=== PATIENT | female | born 1940 | race African-American/Black ===

== ENCOUNTER 2020-08-30 19:41 | Inpatient (IN) | payer MEDICARE ==
[~2020-08-30] VITALS: Ht 165.1 cm; Wt 65.8 kg
[2020-08-30] MEDS ORDERED: SODIUM CHLORIDE 0.9% 1,000 ML IV ONE (20:45)
[2020-08-30 21:40] LABS: HEMATOCRIT. 23.2 % (36.0-48.0); HEMOGLOBIN. 8.1 g/dL (12.0-16.0); MEAN CORPUSCULAR VOLUME 74.7 fL (81.0-99.0); MEAN PLATELET VOLUME 8.4 fl (7.4-10.4); PLATELET 57 x1000/uL (130-400); RED BLOOD CELL COUNT 3.11 mill/uL (4.2-5.4); RED CELL DISTRIBUTION WIDTH 17.4 % (11.6-14.6)
[2020-08-30 21:44] LABS: CLARITY URINE CLEAR (CLEAR); COLOR URINE YELLOW (YELLOW); KETONES URINE NEGATIVE (NEGATIVE); LEUKOCYTE ESTERASE URINE NEGATIVE (NEGATIVE); NITRITE URINE NEGATIVE (NEGATIVE); OCCULT BLOOD URINE 1+ (NEGATIVE); PROTEIN URINE TRACE (NEGATIVE); SPECIFIC GRAVITY URINE 1.011 (1.005-1.030); UROBILINOGEN URINE 0.2 E.U./dL (0.2-1.0)
[2020-08-30 21:45] LABS: CHLORIDE 91 mEq/L (98-107)
[2020-08-30 22:36] LABS: PROTHROMBIN TIME 10.5 sec (9.6-11.0)
[2020-08-30 22:40] LABS: PLATELET ESTIMATE DECREASED
[2020-08-31 03:00] VITALS: BP 172/100
[2020-08-31] MEDS ORDERED: LISI20TA31 PO (03:54)
[2020-08-31] MEDS ORDERED: LISI40TA13 PO (03:58)
[2020-08-31] MEDS ORDERED: SIMV-46 PO (03:58)
[2020-08-31] MEDS ORDERED: PANT20TA17 PO (03:58)
[2020-08-31] MEDS ORDERED: MIRT7.5T11 PO (03:58)
[2020-08-31 04:00] VITALS: BP 172/100
[2020-08-31 08:00] VITALS: BP 182/86
[2020-08-31] MEDS: LISINOPRIL 40MG TABLET PO SCH (08:54)
[2020-08-31] MEDS: HEPARIN 5000 UNITS/ML VIAL SUBCUT SCH ×2 (08:57→22:45)
[2020-08-31 09:47] LABS: HEMATOCRIT 25.2 % (36.0-48.0); HEMOGLOBIN 8.7 g/dL (12.0-16.0); MEAN CORPUSCULAR HEMOGLOBIN 25.7 pg (28.0-32.0); MEAN CORPUSCULAR VOLUME 74.2 fL (81.0-99.0); PLATELET 77 x1000/uL (130-400); RED CELL DISTRIBUTION WIDTH 17.2 % (11.6-14.6)
[2020-08-31 09:51] LABS: CHLORIDE 93 mEq/L (98-107)
[2020-08-31 12:00] VITALS: BP 177/82
[2020-08-31] MEDS: CLONIDINE 0.1MG TABLET PO SCH ×2 (15:39→22:44)
[2020-08-31 16:00] VITALS: BP 199/100
[2020-08-31] MEDS ORDERED: VANCOMYCIN 1250MG in DEXTROSE 5% WATER 250ML IV NR (16:30)
[2020-08-31] MEDS: SODIUM CHLORIDE 0.9% 1,000 ML IV SCH (17:31)
[2020-08-31 20:00] VITALS: BP 128/83
[2020-08-31] MEDS ORDERED: MEDICATION NOT ON FORMULARY EA (Mirtazapine 1 TAB) PO SCH (21:00)
[2020-08-31] MEDS: ATORVASTATIN CALCIUM 40MG TABLET PO SCH (22:44)
[2020-08-31] MEDS: MIRTAZAPINE 15MG TABLET PO SCH (22:44)
[2020-09-01 00:39] VITALS: BP 141/75
[2020-09-01 04:00] VITALS: BP 133/75
[2020-09-01] MEDS: CLONIDINE 0.1MG TABLET PO SCH ×3 (06:17→21:25)
[2020-09-01 08:00] VITALS: BP 148/70
[2020-09-01] MEDS: LISINOPRIL 40MG TABLET PO SCH (08:51)
[2020-09-01] MEDS: HEPARIN 5000 UNITS/ML VIAL SUBCUT SCH ×2 (08:53→21:25)
[2020-09-01] MEDS: PANTOPRAZOLE 40MG DR TABLET PO SCH (08:55)
[2020-09-01] MEDS ORDERED: VANCOMYCIN 750 MG PREMIX 150 ML IV SCH (10:00)
[2020-09-01] MEDS: SODIUM CHLORIDE 0.9% 1,000 ML IV SCH (10:54)
[2020-09-01] MEDS ORDERED: CEFTRIAXONE 1,000 MG in DEXTROSE 5% WATER 50 ML IV SCH (11:30)
[2020-09-01 12:00] VITALS: BP 129/87
[2020-09-01] MEDS: VANCOMYCIN 1 G PREMIX 200 ML IV SCH (12:58)
[2020-09-01] MEDS ORDERED: ACETAMINOPHEN 325MG TABLET PO PRN (14:45)
[2020-09-01] MEDS ORDERED: LORAZEPAM 2MG/ML CPJ IV PRN (14:45)
[2020-09-01] MEDS ORDERED: BISACODYL 10MG SUPP PR PRN (14:45)
[2020-09-01] MEDS ORDERED: IPRATROPIUM/ALBUTEROL 0.5-3(2.5)MG/3ML NEB HHN PRN (14:45)
[2020-09-01] MEDS ORDERED: ACETAMINOPHEN 650MG SUPP PR PRN (14:45)
[2020-09-01] MEDS ORDERED: HYDROCODONE/ACETAMINOPHEN 5/325MG TABLET PO PRN (14:45)
[2020-09-01 16:00] VITALS: BP 143/86
[2020-09-01] MEDS: METRONIDAZOLE 500MG TABLET PO SCH (18:08)
[2020-09-01 20:00] VITALS: BP 117/49
[2020-09-01] MEDS: ATORVASTATIN CALCIUM 40MG TABLET PO SCH (21:25)
[2020-09-01] MEDS: MIRTAZAPINE 15MG TABLET PO SCH (21:25)
[2020-09-02] VITALS (11 sets, daily range): BP systolic 98–184; BP diastolic 53–86
[2020-09-02] MEDS: CEFTRIAXONE 2 G in DEXTROSE 5% WATER 50 ML IV SCH ×3 (00:07→23:17)
[2020-09-02 04:34] LABS: MEAN CORPUSCULAR HEMOGLOBIN 25.9 pg (28.0-32.0); MEAN PLATELET VOLUME 7.7 fl (7.4-10.4); PLATELET 63 x1000/uL (130-400); RED BLOOD CELL COUNT 2.69 mill/uL (4.2-5.4); RED CELL DISTRIBUTION WIDTH 17.7 % (11.6-14.6)
[2020-09-02 04:40] LABS: VANCOMYCIN TROUGH 22.2 ug/mL (5.0-10.0)
[2020-09-02 04:51] LABS: HEMATOCRIT. 20.2 % (36.0-48.0)
[2020-09-02] MEDS: CLONIDINE 0.1MG TABLET PO SCH ×3 (06:00→21:36)
[2020-09-02] MEDS: VANCOMYCIN 1 G PREMIX 200 ML IV SCH (06:00)
[2020-09-02] MEDS: PANTOPRAZOLE 40MG DR TABLET PO SCH (06:40)
[2020-09-02] MEDS: LISINOPRIL 40MG TABLET PO SCH (08:28)
[2020-09-02] MEDS: METRONIDAZOLE 500MG TABLET PO SCH ×2 (08:28→16:30)
[2020-09-02] MEDS: SODIUM CHLORIDE 0.9% 1,000 ML IV SCH ×2 (08:36→21:37)
[2020-09-02 15:26] LABS: PLATELET ESTIMATE DECREASED
[2020-09-02] MEDS ORDERED: VANCOMYCIN 500 MG PREMIX 100 ML IV SCH (18:00)
[2020-09-02] MEDS ORDERED: FILGRASTIM-TBO 300 MCG/0.5 ML SYRINGE SQ SCH (21:00)
[2020-09-02] MEDS: ATORVASTATIN CALCIUM 40MG TABLET PO SCH (21:35)
[2020-09-02] MEDS: MIRTAZAPINE 15MG TABLET PO SCH (21:36)
[2020-09-03 00:31] VITALS: BP 115/77
[2020-09-03 04:00] VITALS: BP 148/59
[2020-09-03] MEDS: PANTOPRAZOLE 40MG DR TABLET PO SCH (06:20)
[2020-09-03] MEDS: CLONIDINE 0.1MG TABLET PO SCH ×3 (06:20→22:17)
[2020-09-03 06:26] LABS: HEMATOCRIT. 23.7 % (36.0-48.0); HEMOGLOBIN. 8.3 g/dL (12.0-16.0); MEAN CORPUSCULAR HEMOGLOBIN 26.5 pg (28.0-32.0); MEAN CORPUSCULAR VOLUME 75.8 fL (81.0-99.0); MEAN PLATELET VOLUME 7.9 fl (7.4-10.4); PLATELET 65 x1000/uL (130-400); RED BLOOD CELL COUNT 3.13 mill/uL (4.2-5.4)
[2020-09-03 08:00] VITALS: BP 134/54
[2020-09-03] MEDS: METRONIDAZOLE 500MG TABLET PO SCH ×2 (08:43→17:21)
[2020-09-03] MEDS: SODIUM CHLORIDE 0.9% 1,000 ML IV SCH (11:56)
[2020-09-03] MEDS: CEFTRIAXONE 2 G in DEXTROSE 5% WATER 50 ML IV SCH (11:57)
[2020-09-03 12:00] VITALS: BP 166/64
[2020-09-03 13:38] LABS: PLATELET ESTIMATE DECREASED
[2020-09-03 16:00] VITALS: BP 174/80
[2020-09-03] MEDS: HYDRALAZINE HCL 50MG TABLET PO SCH (17:46)
[2020-09-03 20:22] VITALS: BP 130/54
[2020-09-03] MEDS: AMLODIPINE 5MG TABLET PO SCH (20:49)
[2020-09-03] MEDS: MIRTAZAPINE 15MG TABLET PO SCH (20:49)
[2020-09-03] MEDS: ATORVASTATIN CALCIUM 40MG TABLET PO SCH (20:49)
[2020-09-04 00:14] VITALS: BP 144/63
[2020-09-04] MEDS: HYDRALAZINE HCL 50MG TABLET PO SCH ×4 (00:24→21:23)
[2020-09-04 04:00] VITALS: BP 118/45
[2020-09-04] MEDS ORDERED: VANCOMYCIN 500 MG PREMIX 100 ML IV NR (06:00)
[2020-09-04] MEDS: PANTOPRAZOLE 40MG DR TABLET PO SCH (06:21)
[2020-09-04] MEDS: CLONIDINE 0.1MG TABLET PO SCH ×3 (06:22→21:20)
[2020-09-04] MEDS: SODIUM CHLORIDE 0.9% 1,000 ML IV SCH ×2 (06:24→13:51)
[2020-09-04 06:43] LABS: BASOPHILS % 0.2 % (0.0-2.0); EOSINOPHILS % 0.1 % (0.0-5.0); HEMOGLOBIN. 7.6 g/dL (12.0-16.0); LYMPHOCYTES % 10.2 % (20.0-50.0); MEAN CORPUSCULAR HEMOGLOBIN 26.2 pg (28.0-32.0); MEAN CORPUSCULAR VOLUME 75.7 fL (81.0-99.0); MEAN PLATELET VOLUME 8.2 fl (7.4-10.4); MONOCYTES % 11.3 % (2.0-8.0); NEUTROPHILS % 78.2 % (40.0-76.0); PLATELET 71 x1000/uL (130-400); RED BLOOD CELL COUNT 2.91 mill/uL (4.2-5.4); RED CELL DISTRIBUTION WIDTH 18.2 % (11.6-14.6)
[2020-09-04 08:00] VITALS: BP 130/49
[2020-09-04] MEDS: METRONIDAZOLE 500MG TABLET PO SCH ×2 (08:35→17:20)
[2020-09-04] MEDS: CEFTRIAXONE 2 G in DEXTROSE 5% WATER 50 ML IV SCH (08:35)
[2020-09-04] MEDS: AMLODIPINE 5MG TABLET PO SCH ×2 (08:36→21:20)
[2020-09-04 12:13] VITALS: BP 140/46
[2020-09-04 16:08] VITALS: BP 156/69
[2020-09-04] MEDS ORDERED: METR500T MT (17:18)
[2020-09-04] MEDS ORDERED: HYDR-4135 MT (17:18)
[2020-09-04 17:36] LABS: HEMATOCRIT 24.6 % (36.0-48.0); HEMOGLOBIN 8.5 g/dL (12.0-16.0)
[2020-09-04] MEDS ORDERED: MIRT7.5T11 MT (17:48)
[2020-09-04] MEDS ORDERED: SODIUM CHLORIDE 0.9% 1,000 ML IV ONE (18:00)
[2020-09-04 20:00] VITALS: BP 121/53
[2020-09-04] MEDS: MIRTAZAPINE 15MG TABLET PO SCH (21:20)
[2020-09-04] MEDS: ATORVASTATIN CALCIUM 40MG TABLET PO SCH (21:20)
[2020-09-05] VITALS (11 sets, daily range): BP systolic 107–175; BP diastolic 45–85
[2020-09-05 05:55] LABS: HEMATOCRIT. 21.3 % (36.0-48.0); HEMOGLOBIN. 7.4 g/dL (12.0-16.0); MEAN CORPUSCULAR HEMOGLOBIN 26.3 pg (28.0-32.0); MEAN CORPUSCULAR VOLUME 75.8 fL (81.0-99.0); MEAN PLATELET VOLUME 7.8 fl (7.4-10.4); PLATELET 80 x1000/uL (130-400); RED BLOOD CELL COUNT 2.81 mill/uL (4.2-5.4); RED CELL DISTRIBUTION WIDTH 18.6 % (11.6-14.6)
[2020-09-05] MEDS: HYDRALAZINE HCL 50MG TABLET PO SCH ×3 (06:00→15:19)
[2020-09-05] MEDS: CLONIDINE 0.1MG TABLET PO SCH ×2 (06:00→15:20)
[2020-09-05] MEDS ORDERED: FAMOTIDINE 20MG TABLET PO SCH (07:20)
[2020-09-05] MEDS: METRONIDAZOLE 500MG TABLET PO SCH ×2 (09:16→17:47)
[2020-09-05] MEDS: CEFTRIAXONE 2 G in DEXTROSE 5% WATER 50 ML IV SCH (09:16)
[2020-09-05] MEDS: AMLODIPINE 5MG TABLET PO SCH (09:17)
[2020-09-06 09:20] LABS: PLATELET ESTIMATE DECREASED
== END 2020-09-05 19:10 | disposition home health service (06) | DRG 871 ==
LOC: ER 19:41 → 6WST 08-31 00:02 → EDBEDREQSVC 08-31 00:05 → EDBEDREQ 08-31 00:05 → EDBEDREQTM 08-31 00:05 → EDBEDREQDT 08-31 00:05 → ENRESERV 08-31 01:37
PROVIDERS: ADMIT Internal Medicine; ATTEND Internal Medicine
PROC: 30233N1 Transfusion of Nonautologous Red Blood Cells into Peripheral Vein, Percutaneous Approach (ICD-10-PCS; 2020-09-02)
PROC: 02HV33Z Insertion of Infusion Device into Superior Vena Cava, Percutaneous Approach (ICD-10-PCS; principal; 2020-09-03)
PROC: B518ZZA Fluoroscopy of Superior Vena Cava, Guidance (ICD-10-PCS; 2020-09-03)
PROC: B548ZZA Ultrasonography of Superior Vena Cava, Guidance (ICD-10-PCS; 2020-09-03)
DX: A41.89 Other specified sepsis (principal); D61.810 Antineoplastic chemotherapy induced pancytopenia; G92 Toxic encephalopathy; J18.9 Pneumonia, unspecified organism; E87.1 Hypo-osmolality and hyponatremia; D68.59 Other primary thrombophilia; N13.6 Pyonephrosis; N17.9 Acute kidney failure, unspecified; T45.1X5A Adverse effect of antineoplastic and immunosuppressive drugs, initial encounter; I27.20 Pulmonary hypertension, unspecified; E78.5 Hyperlipidemia, unspecified; D72.821 Monocytosis (symptomatic); C67.9 Malignant neoplasm of bladder, unspecified; I10 Essential (primary) hypertension; I34.0 Nonrheumatic mitral (valve) insufficiency; N32.89 Other specified disorders of bladder; R29.810 Facial weakness; E11.9 Type 2 diabetes mellitus without complications; Z20.822 Contact with and (suspected) exposure to COVID-19; Z92.3 Personal history of irradiation; Z92.21 Personal history of antineoplastic chemotherapy; Z86.73 Personal history of transient ischemic attack (TIA), and cerebral infarction without residual deficits; Y92.89 Other specified places as the place of occurrence of the external cause; Z90.710 Acquired absence of both cervix and uterus; Z79.899 Other long term (current) drug therapy; B95.5 Unspecified streptococcus as the cause of diseases classified elsewhere
CPT/HCPCS: 36415; 36573; 70551; 71045; 74176; 76857; 80048; 80053; 80202; 81003; 82728; 82962; 83540; 83550; 83605; 84145; 84484; 85014; 85018; 85025; 85027; 85651; 86140; 86850; 86900; 86920; 87077; 87186; 87426; 93005; 93306; 93970; 97116; 97162; 97166; 97530; 97535; 99291; C1725; C1893; J0696; J1442; J1644; J3370; J7030; J7060; P9016; A4315

== ENCOUNTER 2021-02-04 19:26 | Inpatient (IN) | payer MEDICARE ==
[~2021-02-04] VITALS: Ht 165.1 cm; Wt 60.3 kg
[~2021-02-04 19:26] MED LIST: AMLO5TAB88 PO; HYDR-4135 MT; LISI40TA13 MT; METR500T MT; MIRT7.5T11 PO; PANT20TA17 PO; PROT40 MT; SIMV-46 PO; VANC125C11 MT
[2021-02-04] MEDS ORDERED: SODIUM CHLORIDE 0.9% 1000ML BAG (SEPSIS BOLUS) IV ONE (19:45)
[2021-02-04 20:26] LABS: HEMATOCRIT. 26.3 % (36.0-48.0); MEAN CORPUSCULAR HEMOGLOBIN 28.6 pg (28.0-32.0); MEAN PLATELET VOLUME 7.6 fl (7.4-10.4); PLATELET 271 x1000/uL (130-400); RED BLOOD CELL COUNT 3.13 mill/uL (4.2-5.4); RED CELL DISTRIBUTION WIDTH 18.8 % (11.6-14.6)
[2021-02-04 20:35] LABS: INR 1.1; PROTHROMBIN TIME 11.5 sec (9.6-11.0)
[2021-02-04 20:39] LABS: CHLORIDE 93 mEq/L (98-107)
[2021-02-04 20:54] LABS: PLATELET ESTIMATE NORMAL
[2021-02-04] MEDS ORDERED: VANCOMYCIN 1 G PREMIX 200 ML IV ONE (21:45)
[2021-02-04] MEDS ORDERED: PIPERACILLIN/TAZ 3.375G PREMIX 50 ML IV ONE (21:45)
[2021-02-04] MEDS ORDERED: PHENYTOIN SODIUM EXTENDED 100MG CAPSULE PO ONE (22:45)
[2021-02-04] MEDS ORDERED: IOHEXOL-350 100 ML BOTTLE ONE (23:20)
[2021-02-04 23:56] LABS: CLARITY URINE CLEAR (CLEAR); COLOR URINE YELLOW (YELLOW); KETONES URINE NEGATIVE (NEGATIVE); LEUKOCYTE ESTERASE URINE 2+ (NEGATIVE); NITRITE URINE NEGATIVE (NEGATIVE); OCCULT BLOOD URINE NEGATIVE (NEGATIVE); PROTEIN URINE 1+ (NEGATIVE); SPECIFIC GRAVITY URINE 1.027 (1.005-1.030); UROBILINOGEN URINE 0.2 E.U./dL (0.2-1.0)
[2021-02-05] MEDS ORDERED: MAGNESIUM/ALUMINUM HYDROXIDE/SIMETHICONE 30ML UDC PO PRN (09:45)
[2021-02-05] MEDS ORDERED: ONDANSETRON HCL 4MG/2ML INJ IV PRN (09:45)
[2021-02-05] MEDS ORDERED: ACETAMINOPHEN 325MG TABLET PO PRN (09:45)
[2021-02-05] MEDS ORDERED: GUAIFENESIN 200MG/10ML SUGAR FREE UDC PO PRN (09:45)
[2021-02-05] MEDS ORDERED: HYDROCODONE/ACETAMINOPHEN 5/325MG TABLET PO PRN (09:45)
[2021-02-05] MEDS ORDERED: CLONIDINE 0.1MG TABLET PO PRN (09:45)
[2021-02-05] MEDS ORDERED: DOCUSATE SODIUM 100MG CAPSULE PO PRN (09:45)
[2021-02-05] MEDS ORDERED: NA PHOS,M-B/NA PHOS,DI-BA ENEMA 118ML PR PRN (09:45)
[2021-02-05] MEDS ORDERED: DIPHENHYDRAMINE 50MG/ML VIAL IV PRN (09:45)
[2021-02-05] MEDS ORDERED: ACETAMINOPHEN 650MG SUPP PR PRN (09:45)
[2021-02-05] MEDS ORDERED: IPRATROPIUM/ALBUTEROL 0.5-3(2.5)MG/3ML NEB NEB PRN (09:45)
[2021-02-05] MEDS ORDERED: LEVOFLOXACIN 500MG PREMIX 100 ML IV SCH (10:00)
[2021-02-05] MEDS ORDERED: METRONIDAZOLE 500 MG PREMIX 100 ML IV SCH (12:00)
[2021-02-05] MEDS: SODIUM CHLORIDE 0.9% 1,000 ML IV SCH (13:18)
[2021-02-05] MEDS ORDERED: DEXTROSE 50% WATER 50ML SYRINGE IV PRN (13:45)
[2021-02-05] MEDS: INSULIN LISPRO 100 UNITS/ML SUBCUT SCH ×2 (17:40→21:00)
[2021-02-05] MEDS: BLOOD SUGAR DIAGNOSTIC STRIP TEST SCH ×2 (17:57→21:50)
[2021-02-05 18:00] VITALS: BP 142/68
[2021-02-05 18:24] LABS: HEMOGLOBIN. 9.9 g/dL (12.0-16.0); MEAN CORPUSCULAR HEMOGLOBIN 29.3 pg (28.0-32.0); MEAN CORPUSCULAR VOLUME 82.7 fL (81.0-99.0); MEAN PLATELET VOLUME 7.5 fl (7.4-10.4); PLATELET 284 x1000/uL (130-400); RED BLOOD CELL COUNT 3.39 mill/uL (4.2-5.4); RED CELL DISTRIBUTION WIDTH 19.5 % (11.6-14.6)
[2021-02-05 18:29] LABS: CHLORIDE 97 mEq/L (98-107)
[2021-02-05] MEDS: VANCOMYCIN HCL 1000 MG/20 ML ORAL PO SCH ×2 (19:22→23:32)
[2021-02-05 20:00] VITALS: BP_SYST 130; BP_SYST 132; BP_DIAS 87
[2021-02-05 21:21] LABS: PLATELET ESTIMATE NORMAL
[2021-02-05] MEDS: FAMOTIDINE 20MG TABLET PO SCH (21:43)
[2021-02-05] MEDS: LORAZEPAM 0.5MG TABLET PO PRN (21:46)
[2021-02-05] MEDS: METRONIDAZOLE 500 MG PREMIX 100 ML IV SCH (23:32)
[2021-02-06] VITALS: BP 128/60
[2021-02-06 04:00] VITALS: BP 135/63
[2021-02-06] MEDS ORDERED: CEFTRIAXONE 2 G PREMIX 50 ML IV ONE (04:15)
[2021-02-06] MEDS: VANCOMYCIN HCL 1000 MG/20 ML ORAL PO SCH ×3 (05:04→19:11)
[2021-02-06] MEDS: BLOOD SUGAR DIAGNOSTIC STRIP TEST SCH ×4 (05:40→20:53)
[2021-02-06] MEDS: INSULIN LISPRO 100 UNITS/ML SUBCUT SCH ×4 (05:40→20:53)
[2021-02-06] MEDS: SODIUM CHLORIDE 0.9% 1,000 ML IV SCH (05:45)
[2021-02-06] MEDS: CEFTRIAXONE 2 G in DEXTROSE 5% WATER 50 ML IV SCH (05:48)
[2021-02-06] MEDS: METRONIDAZOLE 500 MG PREMIX 100 ML IV SCH ×3 (06:00→23:52)
[2021-02-06 07:06] LABS: HEMATOCRIT. 27.6 % (36.0-48.0); HEMOGLOBIN. 9.4 g/dL (12.0-16.0); MEAN CORPUSCULAR HEMOGLOBIN 28.6 pg (28.0-32.0); MEAN CORPUSCULAR VOLUME 84.5 fL (81.0-99.0); MEAN PLATELET VOLUME 7.8 fl (7.4-10.4); PLATELET 247 x1000/uL (130-400); RED BLOOD CELL COUNT 3.27 mill/uL (4.2-5.4)
[2021-02-06 07:32] LABS: CHLORIDE 98 mEq/L (98-107)
[2021-02-06 07:42] LABS: LDL CHOLESTEROL 48 mg/dL (5-100)
[2021-02-06 07:44] LABS: HDL CHOLESTEROL 31 mg/dL (40-59); T4 FREE 1.74 ng/dL (0.76-1.46)
[2021-02-06 08:00] VITALS: BP 124/79
[2021-02-06] MEDS: RIFAXIMIN 200MG TABLET PO SCH ×2 (10:17→22:01)
[2021-02-06 12:00] VITALS: BP 121/94
[2021-02-06] MEDS: LACTOBACILLUS GG CAPSULE PO SCH (15:30)
[2021-02-06 16:00] VITALS: BP 158/85
[2021-02-06 19:41] LABS: PLATELET ESTIMATE NORMAL
[2021-02-06 20:00] VITALS: BP 146/78
[2021-02-06] MEDS: FAMOTIDINE 20MG TABLET PO SCH (22:01)
[2021-02-07] VITALS: BP 138/60
[2021-02-07] MEDS: SODIUM CHLORIDE 0.9% 1,000 ML IV SCH (01:45)
[2021-02-07 04:00] VITALS: BP 100/59
[2021-02-07] MEDS: VANCOMYCIN HCL 1000 MG/20 ML ORAL PO SCH ×5 (05:47→23:58)
[2021-02-07] MEDS: METRONIDAZOLE 500 MG PREMIX 100 ML IV SCH ×3 (06:15→22:28)
[2021-02-07] MEDS: BLOOD SUGAR DIAGNOSTIC STRIP TEST SCH ×4 (06:25→21:15)
[2021-02-07] MEDS: INSULIN LISPRO 100 UNITS/ML SUBCUT SCH ×4 (06:25→21:00)
[2021-02-07 07:17] LABS: CHLORIDE 99 mEq/L (98-107); HEMATOCRIT. 25.5 % (36.0-48.0); MEAN CORPUSCULAR HEMOGLOBIN 29.2 pg (28.0-32.0); MEAN CORPUSCULAR VOLUME 82.9 fL (81.0-99.0); MEAN PLATELET VOLUME 7.7 fl (7.4-10.4); PLATELET 227 x1000/uL (130-400); RED BLOOD CELL COUNT 3.08 mill/uL (4.2-5.4); RED CELL DISTRIBUTION WIDTH 19.3 % (11.6-14.6)
[2021-02-07 08:00] VITALS: BP 133/75
[2021-02-07] MEDS: LACTOBACILLUS GG CAPSULE PO SCH (09:51)
[2021-02-07] MEDS: CEFTRIAXONE 2 G in DEXTROSE 5% WATER 50 ML IV SCH (09:51)
[2021-02-07] MEDS: RIFAXIMIN 200MG TABLET PO SCH ×2 (09:52→21:18)
[2021-02-07] MEDS ORDERED: POTASSIUM CHLORIDE 20MEQ TABLET SR PO NR (10:45)
[2021-02-07 12:00] VITALS: BP 140/80
[2021-02-07] MEDS ORDERED: POTASSIUM CHLORIDE 20MEQ/PACKET PO NR (15:00)
[2021-02-07] MEDS ORDERED: LOPERAMIDE 2MG/15ML UDC PO PRN (15:30)
[2021-02-07] MEDS ORDERED: LOPERAMIDE HCL 2MG CAPSULE PO PRN (15:45)
[2021-02-07 16:00] VITALS: BP 144/86
[2021-02-07 18:53] LABS: PLATELET ESTIMATE NORMAL
[2021-02-07 20:00] VITALS: BP 143/83
[2021-02-07] MEDS: LORAZEPAM 0.5MG TABLET PO PRN (21:18)
[2021-02-07] MEDS: FAMOTIDINE 20MG TABLET PO SCH (21:18)
[2021-02-07] MEDS: DILTIAZEM HCL 30MG TABLET PO SCH (22:28)
[2021-02-08] MEDS: VANCOMYCIN HCL 1000 MG/20 ML ORAL PO SCH ×4 (00:36→19:00)
[2021-02-08 04:00] VITALS: BP 137/82
[2021-02-08] MEDS: METRONIDAZOLE 500 MG PREMIX 100 ML IV SCH ×3 (05:07→22:17)
[2021-02-08] MEDS: DILTIAZEM HCL 30MG TABLET PO SCH ×3 (06:00→22:17)
[2021-02-08] MEDS: BLOOD SUGAR DIAGNOSTIC STRIP TEST SCH ×4 (06:44→21:00)
[2021-02-08] MEDS: INSULIN LISPRO 100 UNITS/ML SUBCUT SCH ×4 (06:44→21:00)
[2021-02-08 07:34] LABS: HEMOGLOBIN. 10.8 g/dL (12.0-16.0); MEAN CORPUSCULAR HEMOGLOBIN 28.7 pg (28.0-32.0); MEAN CORPUSCULAR VOLUME 84.9 fL (81.0-99.0); MEAN PLATELET VOLUME 7.5 fl (7.4-10.4); PLATELET 294 x1000/uL (130-400); RED BLOOD CELL COUNT 3.77 mill/uL (4.2-5.4); RED CELL DISTRIBUTION WIDTH 19.7 % (11.6-14.6)
[2021-02-08 08:04] LABS: CHLORIDE 100 mEq/L (98-107)
[2021-02-08] MEDS: LACTOBACILLUS GG CAPSULE PO SCH (09:23)
[2021-02-08] MEDS: RIFAXIMIN 200MG TABLET PO SCH ×2 (09:23→22:17)
[2021-02-08] MEDS ORDERED: LIDOCAINE HCL 1% 20ML VIAL (Pyxis) INJ ONE (14:49)
[2021-02-08 16:00] VITALS: BP 155/92
[2021-02-08 16:16] LABS: PLATELET ESTIMATE NORMAL
[2021-02-08] MEDS: CEFTRIAXONE 2 G in DEXTROSE 5% WATER 50 ML IV SCH (17:54)
[2021-02-08 20:00] VITALS: BP 112/60
[2021-02-08] MEDS: FAMOTIDINE 20MG TABLET PO SCH (22:18)
[2021-02-09] MEDS: VANCOMYCIN HCL 1000 MG/20 ML ORAL PO SCH ×4 (00:42→22:40)
[2021-02-09 01:28] VITALS: BP 115/66
[2021-02-09 04:00] VITALS: BP 117/67
[2021-02-09] MEDS: SODIUM CHLORIDE 0.9% 1,000 ML IV SCH ×2 (04:09→13:09)
[2021-02-09] MEDS: METRONIDAZOLE 500 MG PREMIX 100 ML IV SCH (06:07)
[2021-02-09] MEDS: DILTIAZEM HCL 30MG TABLET PO SCH ×3 (06:13→22:41)
[2021-02-09] MEDS: BLOOD SUGAR DIAGNOSTIC STRIP TEST SCH ×4 (06:41→21:00)
[2021-02-09] MEDS: INSULIN LISPRO 100 UNITS/ML SUBCUT SCH ×4 (07:40→21:00)
[2021-02-09 08:00] VITALS: BP 118/68
[2021-02-09] MEDS: CEFTRIAXONE 2 G in DEXTROSE 5% WATER 50 ML IV SCH (09:00)
[2021-02-09] MEDS: LACTOBACILLUS GG CAPSULE PO SCH (10:06)
[2021-02-09] MEDS: RIFAXIMIN 200MG TABLET PO SCH ×2 (10:06→22:40)
[2021-02-09 10:37] LABS: HEMATOCRIT. 27.2 % (36.0-48.0); HEMOGLOBIN. 9.5 g/dL (12.0-16.0); MEAN CORPUSCULAR HEMOGLOBIN 29.1 pg (28.0-32.0); MEAN CORPUSCULAR VOLUME 83.4 fL (81.0-99.0); MEAN PLATELET VOLUME 7.7 fl (7.4-10.4); PLATELET 287 x1000/uL (130-400); RED BLOOD CELL COUNT 3.26 mill/uL (4.2-5.4); RED CELL DISTRIBUTION WIDTH 19.2 % (11.6-14.6)
[2021-02-09 10:39] LABS: CHLORIDE 102 mEq/L (98-107)
[2021-02-09] MEDS ORDERED: POTASSIUM CHLORIDE 20MEQ TABLET SR PO NR (11:45)
[2021-02-09 12:00] VITALS: BP 121/68
[2021-02-09] MEDS: METRONIDAZOLE 500MG TABLET PO SCH ×2 (14:26→22:40)
[2021-02-09] MEDS ORDERED: RIFA550T MT ×2 (15:21)
[2021-02-09] MEDS ORDERED: LACT1CAP60 MT ×2 (15:21)
[2021-02-09] MEDS ORDERED: VANC250C12 MT ×2 (15:21)
[2021-02-09] MEDS ORDERED: PROT40 MT ×2 (15:21)
[2021-02-09 16:00] VITALS: BP 131/71
[2021-02-09 20:00] VITALS: BP 143/76
[2021-02-09 20:58] LABS: PLATELET ESTIMATE NORMAL
[2021-02-09] MEDS: FAMOTIDINE 20MG TABLET PO SCH (22:40)
[2021-02-10] VITALS: BP 134/74
[2021-02-10] MEDS: VANCOMYCIN HCL 1000 MG/20 ML ORAL PO SCH ×2 (00:48→05:32)
[2021-02-10 04:00] VITALS: BP 142/85
[2021-02-10] MEDS: DILTIAZEM HCL 30MG TABLET PO SCH (05:31)
[2021-02-10] MEDS: METRONIDAZOLE 500MG TABLET PO SCH (05:32)
[2021-02-10] MEDS: BLOOD SUGAR DIAGNOSTIC STRIP TEST SCH (05:33)
[2021-02-10] MEDS: INSULIN LISPRO 100 UNITS/ML SUBCUT SCH (05:33)
[2021-02-10 08:00] VITALS: BP 165/85
[2021-02-10] MEDS: RIFAXIMIN 200MG TABLET PO SCH (08:21)
[2021-02-10] MEDS: CEFTRIAXONE 2 G in DEXTROSE 5% WATER 50 ML IV SCH (08:21)
[2021-02-10] MEDS: LACTOBACILLUS GG CAPSULE PO SCH (08:21)
[2021-02-10] MEDS: SODIUM CHLORIDE 0.9% 1,000 ML IV SCH (09:15)
[2021-02-10 09:43] VITALS: BP 148/72
[2021-02-10] MEDS ORDERED: VANC250C12 MT (10:57)
[2021-02-10] MEDS ORDERED: PROT40 MT (10:57)
[2021-02-10] MEDS ORDERED: RIFA550T MT (10:57)
[2021-02-10] MEDS ORDERED: LACT1CAP68 MT (10:57)
[2021-02-11 09:07] LABS: SACCHAROMYCES CEREVISIAE IGG <20.0 Units (0.0-24.9); SACCHAROMYCES CEREVISIAE IGM <20.0 Units (0.0-24.9)
[2021-02-11 15:09] LABS: ATYPICAL pANCA <1:20 titer (Neg:<1:20)
== END 2021-02-10 11:30 | disposition home or self-care (01) | DRG 871 ==
LOC: ER 20:39 → MICUSO 23:22 → EDBEDREQ 23:30 → EDBEDREQTM 23:30 → 8WST 02-05 15:23
PROVIDERS: ADMIT Internal Medicine; ATTEND Internal Medicine
PROC: 02HV33Z Insertion of Infusion Device into Superior Vena Cava, Percutaneous Approach (ICD-10-PCS; principal; 2021-02-08)
PROC: B518ZZA Fluoroscopy of Superior Vena Cava, Guidance (ICD-10-PCS; 2021-02-08)
DX: A41.9 Sepsis, unspecified organism (principal); G93.41 Metabolic encephalopathy; N39.0 Urinary tract infection, site not specified; E87.1 Hypo-osmolality and hyponatremia; K51.00 Ulcerative (chronic) pancolitis without complications; A04.72 Enterocolitis due to Clostridium difficile, not specified as recurrent; C67.9 Malignant neoplasm of bladder, unspecified; D64.9 Anemia, unspecified; I48.91 Unspecified atrial fibrillation; Z20.822 Contact with and (suspected) exposure to COVID-19; I10 Essential (primary) hypertension; E11.65 Type 2 diabetes mellitus with hyperglycemia; E87.6 Hypokalemia; Z79.899 Other long term (current) drug therapy; Z85.51 Personal history of malignant neoplasm of bladder; Z79.01 Long term (current) use of anticoagulants
CPT/HCPCS: 36415; 36573; 70496; 70498; 71045; 74176; 80048; 80053; 80061; 81003; 82270; 82962; 83036; 83605; 83880; 84145; 84439; 84443; 84484; 85025; 85044; 86256; 86671; 87015; 87045; 87426; 87427; 87449; 87493; 89055; 93005; 93306; 93970; 97161; 97530; 99291; A6261; C1725; C1893; J0696; J1200; J1956; J2543; J3370; J3490; J7030; J7040; J7060; Q9967; A4315

== ENCOUNTER 2021-10-19 10:53 | Inpatient (IN) | payer MEDICARE ==
[~2021-10-19] VITALS: Ht 167.6 cm; Wt 88.5 kg
[~2021-10-19 10:53] MED LIST changes: +LACT1CAP68 MT; -METR500T MT; +RIFA550T MT; -VANC125C11 MT; +VANC250C12 MT
[2021-10-19 12:16] LABS: HEMATOCRIT. 31.5 % (36.0-48.0); HEMOGLOBIN. 10.6 g/dL (12.0-16.0); MEAN CORPUSCULAR HEMOGLOBIN 27.4 pg (28.0-32.0); MEAN CORPUSCULAR VOLUME 81.5 fL (81.0-99.0); MEAN PLATELET VOLUME 8.2 fl (7.4-10.4); PLATELET 212 x1000/uL (130-400); RED BLOOD CELL COUNT 3.87 mill/uL (4.2-5.4); RED CELL DISTRIBUTION WIDTH 17.2 % (11.6-14.6)
[2021-10-19 12:23] LABS: PROTHROMBIN TIME 10.9 sec (9.6-11.0)
[2021-10-19 12:25] LABS: CHLORIDE 97 mEq/L (98-107)
[2021-10-19 12:55] LABS: PLATELET ESTIMATE NORMAL
[2021-10-19] MEDS ORDERED: SODIUM CHLORIDE 0.9% 1,000 ML IV ONE (14:15)
[2021-10-19 15:21] LABS: CLARITY URINE CLOUDY (CLEAR); COLOR URINE RED (YELLOW); KETONES URINE NEGATIVE (NEGATIVE); LEUKOCYTE ESTERASE URINE 2+ (NEGATIVE); NITRITE URINE NEGATIVE (NEGATIVE); OCCULT BLOOD URINE 2+ (NEGATIVE); PROTEIN URINE 2+ (NEGATIVE); SPECIFIC GRAVITY URINE 1.012 (1.005-1.030); UROBILINOGEN URINE 0.2 E.U./dL (0.2-1.0)
[2021-10-19] MEDS ORDERED: CEFTRIAXONE 1 G PREMIX 50 ML IV ONE (16:00)
[2021-10-19] MEDS ORDERED: ONDANSETRON HCL 4MG/2ML INJ IV PRN (16:45)
[2021-10-19] MEDS ORDERED: DEXTROSE 50% WATER 50ML SYRINGE IV PRN (16:45)
[2021-10-19] MEDS ORDERED: GUAIFENESIN 200MG/10ML SUGAR FREE UDC PO PRN (16:45)
[2021-10-19] MEDS ORDERED: MAGNESIUM/ALUMINUM HYDROXIDE/SIMETHICONE 30ML UDC PO PRN (16:45)
[2021-10-19] MEDS ORDERED: DIPHENHYDRAMINE 50MG/ML VIAL IV PRN (16:45)
[2021-10-19] MEDS ORDERED: IPRATROPIUM/ALBUTEROL 0.5-3(2.5)MG/3ML NEB NEB PRN (16:45)
[2021-10-19] MEDS ORDERED: LORAZEPAM 0.5MG TABLET PO PRN (16:45)
[2021-10-19] MEDS ORDERED: MORPHINE SULFATE 2 MG/ML CPJ (NOT FOR IM USE) IV PRN (16:45)
[2021-10-19] MEDS ORDERED: HYDROCODONE/ACETAMINOPHEN 5/325MG TABLET PO PRN (16:45)
[2021-10-19] MEDS ORDERED: CEFTRIAXONE 1 G PREMIX 50 ML IV SCH (16:45)
[2021-10-19] MEDS ORDERED: DOCUSATE SODIUM 100MG CAPSULE PO PRN (16:45)
[2021-10-19] MEDS ORDERED: ACETAMINOPHEN 325MG TABLET PO PRN (16:45)
[2021-10-19] MEDS ORDERED: ACETAMINOPHEN 650MG/20.3ML UDC GT PRN (16:45)
[2021-10-19] MEDS: BLOOD SUGAR DIAGNOSTIC STRIP TEST SCH ×2 (17:00→22:13)
[2021-10-19] MEDS ORDERED: NA PHOS,M-B/NA PHOS,DI-BA ENEMA 118ML PR PRN (17:00)
[2021-10-19] MEDS: CLONIDINE 0.1MG TABLET PO PRN (17:44)
[2021-10-19] MEDS: INSULIN LISPRO 100 UNITS/ML SUBCUT SCH ×2 (18:20→22:17)
[2021-10-19] MEDS: FAMOTIDINE 20MG TABLET PO SCH (21:22)
[2021-10-20] MEDS: SODIUM CHLORIDE 0.9% 1,000 ML IV SCH ×2 (01:38→16:59)
[2021-10-20 05:06] LABS: HEMATOCRIT. 24.1 % (36.0-48.0); HEMOGLOBIN. 8.1 g/dL (12.0-16.0); MEAN CORPUSCULAR HEMOGLOBIN 27.6 pg (28.0-32.0); MEAN CORPUSCULAR VOLUME 81.8 fL (81.0-99.0); MEAN PLATELET VOLUME 7.2 fl (7.4-10.4); PLATELET 134 x1000/uL (130-400); RED BLOOD CELL COUNT 2.95 mill/uL (4.2-5.4); RED CELL DISTRIBUTION WIDTH 17.1 % (11.6-14.6)
[2021-10-20 05:16] LABS: CHLORIDE 105 mEq/L (98-107)
[2021-10-20] MEDS: INSULIN LISPRO 100 UNITS/ML SUBCUT SCH ×4 (07:00→21:00)
[2021-10-20] MEDS: BLOOD SUGAR DIAGNOSTIC STRIP TEST SCH ×4 (07:28→21:46)
[2021-10-20] MEDS: CLONIDINE 0.1MG TABLET PO PRN (08:19)
[2021-10-20 10:02] VITALS: BP 182/83
[2021-10-20 10:46] LABS: PLATELET ESTIMATE NORMAL
[2021-10-20] MEDS ORDERED: NALOXONE HCL 0.4MG/ML VIAL IV PRN (12:15)
[2021-10-20] MEDS ORDERED: HYDRALAZINE 20MG/ML VIAL IV NR (12:15)
[2021-10-20 13:08] VITALS: BP 181/86
[2021-10-20 16:00] VITALS: BP 176/75
[2021-10-20] MEDS: CEFTRIAXONE 1,000 MG in DEXTROSE 5% WATER 50 ML IV SCH (17:25)
[2021-10-20 20:00] VITALS: BP 133/76
[2021-10-20] MEDS: FAMOTIDINE 20MG TABLET PO SCH (21:51)
[2021-10-21] VITALS: BP 180/78
[2021-10-21] MEDS: CLONIDINE 0.1MG TABLET PO PRN (00:59)
[2021-10-21 04:00] VITALS: BP 165/73
[2021-10-21] MEDS: HYDRALAZINE 20MG/ML VIAL IV PRN (04:35)
[2021-10-21] MEDS: INSULIN LISPRO 100 UNITS/ML SUBCUT SCH ×4 (05:26→20:44)
[2021-10-21] MEDS: BLOOD SUGAR DIAGNOSTIC STRIP TEST SCH ×4 (05:26→20:44)
[2021-10-21 06:50] LABS: HEMATOCRIT. 23.8 % (36.0-48.0); HEMOGLOBIN. 8.2 g/dL (12.0-16.0); MEAN CORPUSCULAR HEMOGLOBIN 27.6 pg (28.0-32.0); MEAN CORPUSCULAR VOLUME 79.7 fL (81.0-99.0); MEAN PLATELET VOLUME 7.9 fl (7.4-10.4); PLATELET 139 x1000/uL (130-400); RED BLOOD CELL COUNT 2.99 mill/uL (4.2-5.4); RED CELL DISTRIBUTION WIDTH 17.2 % (11.6-14.6)
[2021-10-21 08:00] VITALS: BP 171/55
[2021-10-21 09:20] LABS: PLATELET ESTIMATE NORMAL
[2021-10-21] MEDS ORDERED: LACTULOSE 20G/30ML UDC PO SCH (10:30)
[2021-10-21] MEDS ORDERED: LIDOCAINE HCL 1% 20ML VIAL (Pyxis) INJ ONE (11:57)
[2021-10-21 12:00] VITALS: BP 133/60
[2021-10-21 16:00] VITALS: BP 118/64
[2021-10-21 16:30] LABS: CHLORIDE 103 mEq/L (98-107)
[2021-10-21] MEDS: METOCLOPRAMIDE HCL 10MG/2ML VIAL IV SCH ×3 (16:54→23:59)
[2021-10-21] MEDS: CEFTRIAXONE 1,000 MG in DEXTROSE 5% WATER 50 ML IV SCH (16:54)
[2021-10-21] MEDS: SODIUM CHLORIDE 0.9% 1,000 ML IV SCH (19:54)
[2021-10-21 20:00] VITALS: BP 151/61
[2021-10-21] MEDS: FAMOTIDINE 20MG TABLET PO SCH (20:44)
[2021-10-22] VITALS (7 sets, daily range): BP systolic 144–188; BP diastolic 58–87
[2021-10-22] MEDS: HYDRALAZINE 20MG/ML VIAL IV PRN ×3 (03:55→20:42)
[2021-10-22] MEDS: METOCLOPRAMIDE HCL 10MG/2ML VIAL IV SCH ×4 (05:35→23:53)
[2021-10-22] MEDS: BLOOD SUGAR DIAGNOSTIC STRIP TEST SCH ×4 (06:21→20:36)
[2021-10-22] MEDS: INSULIN LISPRO 100 UNITS/ML SUBCUT SCH ×4 (06:22→20:36)
[2021-10-22 06:29] LABS: HEMATOCRIT. 24.8 % (36.0-48.0); HEMOGLOBIN. 8.6 g/dL (12.0-16.0); MEAN CORPUSCULAR HEMOGLOBIN 27.8 pg (28.0-32.0); MEAN CORPUSCULAR VOLUME 80.2 fL (81.0-99.0); PLATELET 146 x1000/uL (130-400); RED CELL DISTRIBUTION WIDTH 17.4 % (11.6-14.6)
[2021-10-22 06:59] LABS: CHLORIDE 102 mEq/L (98-107)
[2021-10-22] MEDS ORDERED: AMLODIPINE 5MG TABLET PO SCH (10:00)
[2021-10-22 12:59] LABS: HEMATOCRIT 24.8 % (36.0-48.0); HEMOGLOBIN 8.6 g/dL (12.0-16.0)
[2021-10-22] MEDS: HYDRALAZINE HCL 25MG TABLET PO SCH ×2 (14:58→21:19)
[2021-10-22] MEDS: CEFTRIAXONE 1,000 MG in DEXTROSE 5% WATER 50 ML IV SCH (17:35)
[2021-10-22] MEDS: SODIUM CHLORIDE 0.9% 1,000 ML IV SCH (17:36)
[2021-10-22] MEDS: FAMOTIDINE 20MG TABLET PO SCH (20:35)
[2021-10-23] VITALS (7 sets, daily range): BP systolic 143–155; BP diastolic 53–80
[2021-10-23] MEDS: HYDRALAZINE HCL 25MG TABLET PO SCH ×3 (05:39→21:32)
[2021-10-23] MEDS: METOCLOPRAMIDE HCL 10MG/2ML VIAL IV SCH ×4 (05:39→23:57)
[2021-10-23] MEDS: BLOOD SUGAR DIAGNOSTIC STRIP TEST SCH ×2 (06:23→21:12)
[2021-10-23] MEDS: INSULIN LISPRO 100 UNITS/ML SUBCUT SCH ×4 (06:23→21:52)
[2021-10-23 07:34] LABS: HEMATOCRIT. 23.5 % (36.0-48.0); MEAN CORPUSCULAR HEMOGLOBIN 27.8 pg (28.0-32.0); MEAN PLATELET VOLUME 8.1 fl (7.4-10.4); PLATELET 144 x1000/uL (130-400); RED BLOOD CELL COUNT 2.86 mill/uL (4.2-5.4); RED CELL DISTRIBUTION WIDTH 17.6 % (11.6-14.6)
[2021-10-23 07:43] LABS: CHLORIDE 103 mEq/L (98-107)
[2021-10-23 13:48] LABS: PLATELET ESTIMATE NORMAL
[2021-10-23 14:30] LABS: PLATELET ESTIMATE NORMAL
[2021-10-23] MEDS: SODIUM CHLORIDE 0.9% 1,000 ML IV SCH (17:00)
[2021-10-23] MEDS: CEFTRIAXONE 1,000 MG in DEXTROSE 5% WATER 50 ML IV SCH (17:31)
[2021-10-23] MEDS: FAMOTIDINE 20MG TABLET PO SCH (21:31)
[2021-10-24 04:00] VITALS: BP 150/60
[2021-10-24] MEDS: BLOOD SUGAR DIAGNOSTIC STRIP TEST SCH ×2 (05:26→12:00)
[2021-10-24] MEDS: INSULIN LISPRO 100 UNITS/ML SUBCUT SCH ×2 (05:26→12:40)
[2021-10-24] MEDS: METOCLOPRAMIDE HCL 10MG/2ML VIAL IV SCH ×2 (05:35→11:28)
[2021-10-24] MEDS: HYDRALAZINE HCL 25MG TABLET PO SCH ×2 (05:36→14:14)
[2021-10-24 08:00] VITALS: BP 163/70
[2021-10-24] MEDS: HYDRALAZINE 20MG/ML VIAL IV PRN (08:49)
[2021-10-24 12:00] VITALS: BP 147/66
[2021-10-24 15:17] VITALS: BP 143/62
[2021-10-24 16:00] VITALS: BP 139/68
[2021-10-24 16:30] LABS: HEMATOCRIT. 26.5 % (36.0-48.0); HEMOGLOBIN. 8.7 g/dL (12.0-16.0); MEAN CORPUSCULAR HEMOGLOBIN 26.7 pg (28.0-32.0); MEAN CORPUSCULAR VOLUME 81.1 fL (81.0-99.0); MEAN PLATELET VOLUME 7.3 fl (7.4-10.4); PLATELET 160 x1000/uL (130-400); RED BLOOD CELL COUNT 3.27 mill/uL (4.2-5.4); RED CELL DISTRIBUTION WIDTH 17.4 % (11.6-14.6)
[2021-10-24 17:59] LABS: PLATELET ESTIMATE NORMAL
[2021-10-26 13:11] LABS: DIRECTOR REVIEW Comment: (.); FISH RESULTS Comment: (.)
== END 2021-10-24 16:40 | disposition home health service (06) | DRG 689 ==
LOC: ER 10:53 → MICUSO 14:04 → 8WST 10-20 10:06
PROVIDERS: ADMIT Internal Medicine; ATTEND Internal Medicine
PROC: 02HV33Z Insertion of Infusion Device into Superior Vena Cava, Percutaneous Approach (ICD-10-PCS; principal; 2021-10-21)
PROC: B548ZZA Ultrasonography of Superior Vena Cava, Guidance (ICD-10-PCS; 2021-10-21)
PROC: B5181ZA Fluoroscopy of Superior Vena Cava using Low Osmolar Contrast, Guidance (ICD-10-PCS; 2021-10-21)
DX: N39.0 Urinary tract infection, site not specified (principal); G93.41 Metabolic encephalopathy; E87.1 Hypo-osmolality and hyponatremia; C95.90 Leukemia, unspecified not having achieved remission; R31.9 Hematuria, unspecified; I10 Essential (primary) hypertension; E66.9 Obesity, unspecified; Z20.822 Contact with and (suspected) exposure to COVID-19; R19.07 Generalized intra-abdominal and pelvic swelling, mass and lump; E11.9 Type 2 diabetes mellitus without complications; K59.00 Constipation, unspecified; Z85.3 Personal history of malignant neoplasm of breast; Z85.51 Personal history of malignant neoplasm of bladder; Z79.899 Other long term (current) drug therapy; Z68.31 Body mass index [BMI] 31.0-31.9, adult
CPT/HCPCS: 36415; 36573; 71045; 72170; 74176; 80048; 80053; 81003; 82962; 83615; 84443; 84550; 85014; 85018; 85025; 86300; 86850; 86900; 87426; 93005; 93306; 93970; 97162; 99291; C1725; J0360; J0696; J1815; J2765; J3490; J7030; J7060; A4315

== ENCOUNTER 2021-12-18 11:42 | Emergency (ER) | payer MEDICARE ==
[~2021-12-18] VITALS: Ht 152.4 cm; Wt 56.0 kg
[~2021-12-18 11:42] MED LIST changes: -PROT40 MT; -RIFA550T MT; -VANC250C12 MT
[2021-12-18] MEDS ORDERED: [UNRECOGNIZED DRUG - CODE] PO (12:01)
[2021-12-18 12:56] LABS: MEAN CORPUSCULAR HEMOGLOBIN 28.3 pg (28.0-32.0); MEAN CORPUSCULAR VOLUME 85.1 fL (81.0-99.0); MEAN PLATELET VOLUME 7.6 fl (7.4-10.4); PLATELET 65 x1000/uL (130-400); RED BLOOD CELL COUNT 2.05 mill/uL (4.2-5.4); RED CELL DISTRIBUTION WIDTH 22.5 % (11.6-14.6)
[2021-12-18 13:00] LABS: CHLORIDE 92 mEq/L (98-107)
[2021-12-18 13:02] LABS: HEMATOCRIT. 17.4 % (36.0-48.0); HEMOGLOBIN. 5.8 g/dL (12.0-16.0)
[2021-12-18 13:42] LABS: PLATELET ESTIMATE DECREASED
[2021-12-18 22:00] VITALS: BP 151/94
== END 2021-12-18 22:15 | disposition home or self-care (01) ==
LOC: ER 12:08
DX: D64.89 Other specified anemias (principal); E87.1 Hypo-osmolality and hyponatremia; I10 Essential (primary) hypertension; R94.31 Abnormal electrocardiogram [ECG] [EKG]; E11.9 Type 2 diabetes mellitus without complications; Z85.51 Personal history of malignant neoplasm of bladder; Z98.890 Other specified postprocedural states; Z85.6 Personal history of leukemia
CPT/HCPCS: 36415; 80053; 85025; 86850; 86900; 86920; 93005; 99285; P9016

== ENCOUNTER 2022-01-04 12:04 | Emergency (ER) | payer MEDICARE ==
[~2022-01-04] VITALS: Ht 152.4 cm; Wt 58.0 kg
[~2022-01-04 12:04] MED LIST changes: +[UNRECOGNIZED DRUG - CODE] PO
[2022-01-04 15:37] LABS: HEMATOCRIT. 23.2 % (36.0-48.0); HEMOGLOBIN. 7.6 g/dL (12.0-16.0); MEAN CORPUSCULAR HEMOGLOBIN 29.2 pg (28.0-32.0); MEAN PLATELET VOLUME 8.2 fl (7.4-10.4); PLATELET 64 x1000/uL (130-400); RED BLOOD CELL COUNT 2.61 mill/uL (4.2-5.4); RED CELL DISTRIBUTION WIDTH 20.2 % (11.6-14.6)
[2022-01-04 15:43] LABS: CHLORIDE 97 mEq/L (98-107)
[2022-01-04 15:45] LABS: PROTHROMBIN TIME 10.9 sec (9.6-11.0)
[2022-01-04 19:00] VITALS: BP 180/84
[2022-01-04 20:40] LABS: PLATELET ESTIMATE DECREASED
== END 2022-01-04 21:00 | disposition home or self-care (01) ==
LOC: ER 12:04 → EDBEDREQTM 18:51 → EDBEDREQ 18:51 → CANRESERV 19:35 → ENRESERV 19:35 → ER 21:00 → CANBEDREQ 01-05 00:29
DX: D64.9 Anemia, unspecified (principal)
CPT/HCPCS: 36415; 80053; 85025; 86850; 86900; 86920; 99285; P9016

== ENCOUNTER 2022-02-14 10:52 | Inpatient (IN) | payer MEDICARE ==
[~2022-02-14] VITALS: Ht 165.1 cm; Wt 55.8 kg
[2022-02-14 12:11] LABS: CHLORIDE 99 mEq/L (98-107)
[2022-02-14 12:20] LABS: CLARITY URINE CLEAR (CLEAR); COLOR URINE YELLOW (YELLOW); KETONES URINE NEGATIVE (NEGATIVE); LEUKOCYTE ESTERASE URINE TRACE (NEGATIVE); NITRITE URINE NEGATIVE (NEGATIVE); OCCULT BLOOD URINE NEGATIVE (NEGATIVE); PH URINE 5.5 (4.5-8.0); PROTEIN URINE 1+ (NEGATIVE); SPECIFIC GRAVITY URINE 1.013 (1.005-1.030); UROBILINOGEN URINE 0.2 E.U./dL (0.2-1.0)
[2022-02-14 12:26] LABS: MEAN CORPUSCULAR HEMOGLOBIN 30.3 pg (28.0-32.0); MEAN CORPUSCULAR VOLUME 90.2 fL (81.0-99.0); MEAN PLATELET VOLUME 10.3 fl (7.4-10.4); PLATELET 78 x1000/uL (130-400); RED BLOOD CELL COUNT 1.47 mill/uL (4.2-5.4); RED CELL DISTRIBUTION WIDTH 18.6 % (11.6-14.6)
[2022-02-14 12:29] LABS: PROTHROMBIN TIME 10.6 sec (9.6-11.0)
[2022-02-14 12:31] LABS: HEMATOCRIT. 13.3 % (36.0-48.0); HEMOGLOBIN. 4.5 g/dL (12.0-16.0)
[2022-02-14] MEDS ORDERED: CEFTRIAXONE 1 G PREMIX 50 ML IV ONE (13:15)
[2022-02-14 13:17] LABS: PLATELET ESTIMATE DECREASED
[2022-02-14] MEDS ORDERED: PANTOPRAZOLE SODIUM 40 MG/VIAL IV SCH (13:45)
[2022-02-14] MEDS ORDERED: ACETAMINOPHEN 325MG TABLET PO PRN (13:45)
[2022-02-14] MEDS ORDERED: ONDANSETRON HCL 4MG/2ML INJ IV PRN (13:45)
[2022-02-14] MEDS ORDERED: PIPERACILLIN/TAZ 3.375G PREMIX 50 ML IV SCH (14:00)
[2022-02-14] MEDS: SODIUM CHLORIDE 0.9% 1,000 ML IV SCH (14:21)
[2022-02-14 15:45] LABS: TOTAL IRON BINDING CAPACITY 290 ug/dL (250-450)
[2022-02-14 16:19] LABS: VITAMIN B12 SERUM 1036 pg/mL (211-911)
[2022-02-14 16:33] LABS: FERRITIN 1435 ng/mL (10-291)
[2022-02-14 16:35] LABS: FOLIC ACID (FOLATE) SERUM > 20.00 ng/mL (>5.38)
[2022-02-14] MEDS: AMLODIPINE 5MG TABLET PO SCH (17:00)
[2022-02-14] MEDS: HYDRALAZINE HCL 50MG TABLET PO SCH (17:00)
[2022-02-14 22:00] VITALS: BP 136/65
[2022-02-15] VITALS (12 sets, daily range): BP systolic 106–167; BP diastolic 59–83
[2022-02-15] MEDS: PANTOPRAZOLE SODIUM 40 MG/VIAL IV SCH ×3 (00:02→16:10)
[2022-02-15] MEDS: PIPERACILLIN/TAZOBACTAM 3.375G in DEXT 5% WATER 50ML IV SCH ×3 (00:03→21:33)
[2022-02-15] MEDS: SODIUM CHLORIDE 0.9% 1,000 ML IV SCH ×2 (00:05→16:12)
[2022-02-15 03:35] LABS: MEAN CORPUSCULAR HEMOGLOBIN 30.6 pg (28.0-32.0); MEAN PLATELET VOLUME 7.3 fl (7.4-10.4); RED BLOOD CELL COUNT 1.58 mill/uL (4.2-5.4); RED CELL DISTRIBUTION WIDTH 16.9 % (11.6-14.6)
[2022-02-15 03:53] LABS: HEMATOCRIT. 14.2 % (36.0-48.0); HEMOGLOBIN. 4.8 g/dL (12.0-16.0)
[2022-02-15 03:54] LABS: PLATELET 36 x1000/uL (130-400)
[2022-02-15] MEDS: AMLODIPINE 5MG TABLET PO SCH ×2 (08:56→16:11)
[2022-02-15] MEDS: HYDRALAZINE HCL 50MG TABLET PO SCH ×4 (08:56→16:19)
[2022-02-15] MEDS ORDERED: LISINOPRIL 40MG TABLET PO SCH (09:00)
[2022-02-15] MEDS ORDERED: ACETAMINOPHEN 325MG TABLET PO PRN (13:45)
[2022-02-15 19:02] LABS: HEMATOCRIT 25.2 % (36.0-48.0); HEMOGLOBIN 8.6 g/dL (12.0-16.0)
[2022-02-16] VITALS (8 sets, daily range): BP systolic 146–160; BP diastolic 72–102
[2022-02-16] MEDS: PIPERACILLIN/TAZOBACTAM 3.375G in DEXT 5% WATER 50ML IV SCH ×3 (06:30→21:43)
[2022-02-16] MEDS: SODIUM CHLORIDE 0.9% 1,000 ML IV SCH ×2 (06:30→19:15)
[2022-02-16 06:38] LABS: HEMATOCRIT. 21.1 % (36.0-48.0); HEMOGLOBIN. 7.3 g/dL (12.0-16.0); MEAN CORPUSCULAR VOLUME 89.2 fL (81.0-99.0); PLATELET 51 x1000/uL (130-400); RED BLOOD CELL COUNT 2.37 mill/uL (4.2-5.4); RED CELL DISTRIBUTION WIDTH 17.1 % (11.6-14.6)
[2022-02-16] MEDS: AMLODIPINE 5MG TABLET PO SCH ×2 (08:55→16:42)
[2022-02-16] MEDS: PANTOPRAZOLE SODIUM 40 MG/VIAL IV SCH ×2 (08:55→16:42)
[2022-02-16] MEDS: HYDRALAZINE HCL 50MG TABLET PO SCH (08:55)
[2022-02-16 12:49] LABS: NUCLEATED RED BLOOD CELLS 4 /100 WBC
[2022-02-16 12:51] LABS: PLATELET ESTIMATE MARKEDLY DECREASED
[2022-02-16] MEDS ORDERED: HYDRALAZINE 20MG/ML VIAL IV PRN (13:15)
[2022-02-16 13:20] LABS: PLATELET ESTIMATE MARKEDLY DECREASED
[2022-02-17] VITALS: BP 139/80
[2022-02-17 08:17] LABS: HEMATOCRIT. 25.3 % (36.0-48.0); HEMOGLOBIN. 8.6 g/dL (12.0-16.0); MEAN CORPUSCULAR HEMOGLOBIN 30.8 pg (28.0-32.0); MEAN CORPUSCULAR VOLUME 91.2 fL (81.0-99.0); RED BLOOD CELL COUNT 2.77 mill/uL (4.2-5.4)
[2022-02-17 08:18] LABS: RED CELL DISTRIBUTION WIDTH 17.4 % (11.6-14.6)
[2022-02-17 08:19] LABS: MEAN PLATELET VOLUME 7.6 fl (7.4-10.4)
[2022-02-17 08:22] LABS: PLATELET 29 x1000/uL (130-400)
[2022-02-17] MEDS: PANTOPRAZOLE SODIUM 40 MG/VIAL IV SCH (09:00)
[2022-02-17] MEDS: AMLODIPINE 5MG TABLET PO SCH ×2 (09:00→17:23)
[2022-02-17 16:00] VITALS: BP 125/89
[2022-02-17 17:18] LABS: PLATELET ESTIMATE MARKEDLY DECREASED
[2022-02-17 18:00] VITALS: BP 125/65
[2022-02-17 20:00] VITALS: BP 150/78
[2022-02-17] MEDS: PIPERACILLIN/TAZOBACTAM 3.375G in DEXT 5% WATER 50ML IV SCH ×2 (20:56→20:59)
[2022-02-17] MEDS: SODIUM CHLORIDE 0.9% 1,000 ML IV SCH ×2 (20:58→20:59)
[2022-02-18] VITALS: BP 155/78
[2022-02-18 04:00] VITALS: BP 136/84
[2022-02-18] MEDS: PIPERACILLIN/TAZOBACTAM 3.375G in DEXT 5% WATER 50ML IV SCH ×2 (05:18→14:10)
[2022-02-18 06:57] LABS: HEMATOCRIT. 24.3 % (36.0-48.0); HEMOGLOBIN. 8.5 g/dL (12.0-16.0); MEAN PLATELET VOLUME 8.3 fl (7.4-10.4); RED BLOOD CELL COUNT 2.73 mill/uL (4.2-5.4); RED CELL DISTRIBUTION WIDTH 17.6 % (11.6-14.6)
[2022-02-18 07:28] LABS: PLATELET 34 x1000/uL (130-400)
[2022-02-18 08:00] VITALS: BP 130/82
[2022-02-18] MEDS: AMLODIPINE 5MG TABLET PO SCH (08:49)
[2022-02-18 12:00] VITALS: BP 135/74
[2022-02-18 15:43] VITALS: BP 156/82
[2022-02-19 00:05] LABS: PLATELET ESTIMATE MARKEDLY DECREASED
== END 2022-02-18 17:15 | disposition hospice, home (50) | DRG 834 ==
LOC: ER 10:52 → 8WST 13:25 → EDBEDREQSVC 13:57 → EDBEDREQ 13:57 → ENRESERV 18:10 → 8WST 22:05
PROVIDERS: ADMIT Internal Medicine; ATTEND Internal Medicine
PROC: 30233N1 Transfusion of Nonautologous Red Blood Cells into Peripheral Vein, Percutaneous Approach (ICD-10-PCS; principal; 2022-02-14)
PROC: 30233N1 Transfusion of Nonautologous Red Blood Cells into Peripheral Vein, Percutaneous Approach (ICD-10-PCS; 2022-02-15)
PROC: 30233N1 Transfusion of Nonautologous Red Blood Cells into Peripheral Vein, Percutaneous Approach (ICD-10-PCS; 2022-02-16)
DX: C92.00 Acute myeloblastic leukemia, not having achieved remission (principal); G92.8 Other toxic encephalopathy; D61.818 Other pancytopenia; N39.0 Urinary tract infection, site not specified; N17.9 Acute kidney failure, unspecified; E87.1 Hypo-osmolality and hyponatremia; E11.9 Type 2 diabetes mellitus without complications; E87.5 Hyperkalemia; I10 Essential (primary) hypertension; D63.0 Anemia in neoplastic disease; T45.1X5A Adverse effect of antineoplastic and immunosuppressive drugs, initial encounter; Z85.51 Personal history of malignant neoplasm of bladder; Z20.822 Contact with and (suspected) exposure to COVID-19; Z85.3 Personal history of malignant neoplasm of breast; Z90.11 Acquired absence of right breast and nipple; Z86.73 Personal history of transient ischemic attack (TIA), and cerebral infarction without residual deficits; Z51.5 Encounter for palliative care; Y92.89 Other specified places as the place of occurrence of the external cause
CPT/HCPCS: 36415; 71045; 80048; 80053; 81003; 82607; 82728; 82746; 82962; 83540; 83550; 83605; 84145; 85014; 85018; 85025; 85044; 86850; 86900; 86920; 87426; 93005; 99291; C9113; J0696; J2543; J7060; P9016